=== PATIENT | male | born 1940 ===

== ENCOUNTER → 2021-01-13 07:57 | Outpatient (CLI) | payer MEDICARE, SELFPAY ==
[2021-01-13 20:11] LABS: COVID19 - ORCAS (NP or Nasal) Negative (Negative)
== END ==
PROVIDERS: PCP Family Medicine; Referring Provider Family Medicine; Visit Provider Family Medicine
DX: Z20.822 Contact with and (suspected) exposure to COVID-19 (principal)
CPT/HCPCS: C9803; U0003